=== PATIENT | female | born 2000 | race African-American/Black ===

== ENCOUNTER → 2019-01-12 | Outpatient (REF) | payer OTHER ==
[~2019-01-12] MED LIST: AZO-95TA3 PO; MACR100C43 PO; PYRI1TAB5 PO
== END ==
LOC: M SFHCLERA 12:52
PROVIDERS: ATTEND Physician Assistant
DX: R30.0 Dysuria (principal)

== ENCOUNTER 2019-01-15 05:41 | Emergency (ER) | payer OTHER ==
[~2019-01-15] VITALS: Ht 152.4 cm; Wt 58.0 kg
[2019-01-15] MEDS ORDERED: AZO-95TA3 PO (06:01)
[2019-01-15] MEDS ORDERED: IBUPROFEN 600 MG TAB PO ONE (06:15)
[2019-01-15 06:22] LABS: APPEARANCE, URINE HAZY (CLEAR); BACTERIA, URINE AUTO 1+ (NEGATIVE); BILIRUBIN, URINE AUTO NEGATIVE (NEGATIVE); BLOOD, URINE BLOOD 3+ (NEGATIVE); COLOR, URINE YELLOW (YELLOW); GLUCOSE, URINE (UA) AUTO NEGATIVE (NEGATIVE); KETONE, URINE AUTO TRACE mg/dL (NEGATIVE); LEUKOCYTE ESTERASE, URINE AUTO 3+ (NEGATIVE); MUCUS, URINE SMALL (NEGATIVE); NITRITE, URINE AUTO NEGATIVE (NEGATIVE); PROTEIN, URINE AUTO 1+ mg/dL (NEGATIVE); RBC, URINE AUTO 18 /HPF (0-3); SPECIFIC GRAVITY URINE AUTO 1.004 (1.002-1.035); SQUAMOUS EPITHELIAL CELL UR AU 0 /HPF (0-6); UROBILINOGEN, URINE AUTO 0.2 mg/dL (0.0-2.0); WBC, URINE AUTO TNTC /HPF (0-3)
[2019-01-15] MEDS ORDERED: PYRI1TAB5 PO (06:33)
[2019-01-15] MEDS ORDERED: MACR100C43 PO (06:33)
[2019-01-15 06:41] VITALS: BP 109/78
== END 2019-01-15 06:43 | disposition home or self-care (01) ==
LOC: M ED 05:41
DX: N39.0 Urinary tract infection, site not specified (principal); R31.9 Hematuria, unspecified

== ENCOUNTER 2019-03-15 00:02 | Emergency (ER) | payer OTHER ==
[~2019-03-15] VITALS: Ht 152.4 cm; Wt 59.1 kg
[2019-03-15] MEDS ORDERED: NS 1,000 ML IV ONE (00:30)
[2019-03-15 00:38] LABS: BASO # 0.1 10^3/uL (0.0-0.2); BASO % 0.6 % (0.0-1.0); EOS # 0.2 10^3/uL (0.0-0.50); EOS % 1.9 % (0.0-3.0); HEMOGLOBIN 14.1 g/dl (12.0-15.5); LYMPH # 3.7 10^3/uL (1.5-6.5); LYMPH % 33.4 % (24.0-44.0); MEAN CORPUSCULAR HEMOGLOBIN 30.9 pg (27.0-33.0); MEAN CORPUSCULAR HGB CONC 32.8 g/dl (32.0-36.5); MEAN CORPUSCULAR VOLUME 94.3 fl (80.0-96.0); MONO # 0.9 10^3/uL (0.0-0.8); NEUTROPHILS # 6.1 10^3/uL (1.8-7.7); NEUTROPHILS % 55.8 % (36.0-66.0); PLATELET COUNT, AUTOMATED 261 10^3/uL (150-450); RED BLOOD COUNT 4.56 10^6/uL (4.00-5.40)
[2019-03-15] MEDS ORDERED: KETOROLAC 30 MG/ML VIAL (J1885) IV ONE (01:30)
--- NOTE | 2019-03-15 02:22 | REPVR ---
EXAM: US Pelvis Complete, Transabdominal and US Duplex Artery or Vein, Ovaries, Limited EXAM DATE/TIME: 03/15/2019 1:52 AM CLINICAL HISTORY: 18 years old, female; Pelvic pain; Additional info: Llq pain TECHNIQUE: Imaging protocol: Real-time transabdominal pelvic ultrasound with image documentation. Real-time duplex ultrasound scan of the arterial or venous flow of the ovaries with B-mode, color Doppler flow and spectral waveform analysis. Complete Pelvis, Limited Duplex. COMPARISON: No relevant prior studies available. FINDINGS: Uterus/cervix: The anteverted uterus is normal in appearance and measures 9.4 cm x 4 cm x 4.9 cm. The endometrial stripe is homogeneous in appearance and measures 15 mm in thickness. Right adnexa: The right ovary is normal in appearance. No right ovarian cyst or right adnexal mass is noted. The right ovary measures 3.8 cm x 1.3 cm x 2.5 cm. The color Doppler and spectral waveforms in the right ovary are within normal limits without evidence for ovarian torsion. Left adnexa: The left ovary is normal in appearance. No left ovarian cyst or left adnexal mass is noted. The left ovary measures 3.2 cm x 2 cm x 2.3 cm. The color Doppler and spectral waveforms in the left ovary are within normal limits without evidence for ovarian torsion. Free fluid: There is a trace amount of free fluid in the cul-de-sac. Bladder: Unremarkable. IMPRESSION: Normal ultrasound of the uterus and ovaries. No ovarian torsion. Electronically signed by: Ayden Alegre On 03/15/2019 02:20:59 AM
[2019-03-15] MEDS ORDERED: MAGNESIUM CITRATE 300 ML BTL PO ONE (02:30)
[2019-03-15 02:34] VITALS: BP 121/82
--- NOTE | 2019-03-15 14:03 | REP ---
Clinical: Epigastric and abdominal pain. Technique: Upright view of the chest with supine and upright views of the abdomen and pelvis. Findings: Frontal upright view of the chest demonstrates no acute cardiopulmonary process or free air below the diaphragm to suspect pneumoperitoneum. Supine and upright views of the abdomen and pelvis demonstrate nonspecific bowel gas pattern without obstruction or perforation. No organomegaly. No abnormal calcifications. Skeletal structures normal for age. Impression: Nonspecific bowel gas pattern. Electronically Signed by Kev Bradford MD 03/15/2019 07:50 A
== END 2019-03-15 02:36 | disposition home or self-care (01) ==
LOC: M ED 00:02
DX: R10.32 Left lower quadrant pain (principal)
CPT/HCPCS: 74021; 76856; 80047; 84702; 85025; 93976; 96375; 99284; J1885

== ENCOUNTER 2019-03-24 21:19 | Emergency (ER) | payer OTHER ==
[~2019-03-24] VITALS: Ht 152.4 cm; Wt 59.1 kg
[2019-03-24 21:20] VITALS: BP 122/70
[2019-03-24] MEDS ORDERED: PRED20TA PO (22:21)
[2019-03-24] MEDS ORDERED: HYDR25OIN TOP (22:21)
[2019-03-24] MEDS ORDERED: diphenhydrAMINE 25 MG CAP PO ONE (22:30)
[2019-03-24] MEDS ORDERED: predniSONE 20 MG TAB PO ONE (22:30)
== END 2019-03-24 22:33 | disposition home or self-care (01) ==
LOC: M ED 21:19
DX: L50.1 Idiopathic urticaria (principal); L30.9 Dermatitis, unspecified

== ENCOUNTER → 2019-10-25 | Outpatient (REF) | payer OTHER ==
[~2019-10-25] MED LIST changes: +HYDR25OIN TOP; +PRED20TA PO
[2019-10-25 20:41] LABS: CHLAMYDIA DNA AMPLIFICATION POSITIVE (NEGATIVE); GC DNA AMPLIFICATION NEGATIVE (NEGATIVE)
== END ==
LOC: M SFHCLERA 12:06
PROVIDERS: ATTEND Nurse Practitioner Family
DX: N89.8 Other specified noninflammatory disorders of vagina (principal)
CPT/HCPCS: 81002; 81025; 87070; 87077; 87086; 87186; 87661; G0463